=== PATIENT | male | born 1980 | race African-American/Black ===

== ENCOUNTER 2021-06-14 04:55 | Emergency (ER) | payer OTHER ==
[~2021-06-14] VITALS: Ht 172.7 cm; Wt 81.7 kg
--- NOTE | ~2021-06-14 | EMS ---
[address] [address] EMS Patient Care Report Name: FARHAN THOMPSON [id number] Admission: 06/14/21 Attend Phys: Discharge: 06/14/21 Date of : 76 Report #: [id number] THIS REPORT FOR: //name// Report Transmitted: 06/15/2021 10:40 EMS Care Summary [place], [place]/[facility] Incident [id number] @ 06/14/2021 04:12 Incident [address] [place] [address] Patient FARHAN THOMPSON Male, 41 Years 1980 Patient Address [address] [place] [address] Patient History None Reported, Patient Allergies No known allergies, Patient Medications None Reported, Chief Complaint METHADONE OVERDOSE Disposition Transported No Lights/[place] Dispatch Reason Convulsions/Seizure Transported To [facility] Narrative PT FOUND LYING ON L SIDE ON FLOOR IN [address] [address] OF HIS HOME. PT STATES THAT HE TOOK METHADONE AND THOUGHT HE WAS GOING TO OVERDOSE SO HE GAVE HIMSELF NARCAN IN. PT STATES THAT AFTER TAKING THE NARCAN HE HE GOT NAUSEOUS AND VOMITED MULTIPLE TIMES. PT STATES THAT HE BELIEVES HE IS ALLERGIC TO THE NARCAN. PT [address] [address] EMS Patient Care Report Name: FARHAN THOMPSON Room #: DEP [facility]#: [id number] Admission: 06/14/21 Attend Phys: Discharge: 06/14/21 Date of : 76 Report #: [id number] ABLE TO STAND AND AMBULATE TO STRETCHER W/ EMS ASSIST. PT STATES THAT HE DOES NOT WANT MORE NARCAN FROM EMS. PT HAS NO VISIBLE TRAUMA. PT HAS NO COMPLAINTS OF PAIN, SOB, CP OR TRAUMA. NO CHANGES NOTED ENROUTE. Initial Vitals @04:30P: 96,R: 16,BP: 113/70,Pain: 0/10,GCS: 15,Glucose: 201,CO: 14,SpO2: 100,Revised Trauma: 12, @04:31P: 89,R: 16,BP: 122/71,GCS: 15,SpO2: 98,Revised Trauma: 12, Assessments @04:25MENTAL:No Abnormalities,SKIN:No Abnormalities,HEENT:Eyes: Right: Constricted,Eyes: Left: Constricted,LUNG SOUNDS:General: Vomiting,ABDOMEN:General: Vomiting,PELVIS//GI:No Abnormalities,EXTREMITIES:PULSE:NEURO:No Abnormalities, Impression Overdose - Methadone Procedures @04:25 ALS Assessment Response: UnchangedSucceeded @04:27 Stretcher Response: Unchanged @04:37 IV Therapy - Saline Lock 0cc (20 ga) Site: Hand-Right Response: UnchangedFailed @04:31 3-Lead ECG Response: UnchangedSucceeded Timeline 04:12,Call Received 04:12,Dispatch Notified 04:12,Dispatched 04:14,En Route 04:23,On Scene 04:25,At Patient 04:25,ALS Assessment,Response: UnchangedSucceeded, 04:27,Stretcher,Response: Unchanged 04:30,BP: 113/70 M,PULSE: 96,RR: 16 R,SPO2: 100 Ox,ETCO2: ,B,PAIN: 0,GCS: 15, 04:31,BP: 122/71 M,PULSE: 89,RR: 16 R,SPO2: 98 Ox,ETCO2: ,BG: ,PAIN: ,GCS: 15, 04:31,3-Lead ECG,Response: UnchangedSucceeded, 04:37,IV Therapy - Saline Lock 0cc 20 ga Site: Hand-Right,Response: UnchangedFailed, 04:42,Depart Scene 04:54,At Destination 05:02,Call Closed Disclaimer [address] [address] EMS Patient Care Report Name: FARHAN THOMPSON [facility] [id number] Admission: 06/14/21 Attend Phys: Discharge: 06/14/21 Date of : 76 Report #: [id number] v1.1 Copyright 2021 [employer] This EMS Care Summary contains data elements from the applicable legal record (which may be displayed differently). It is designed to provide pertinent information for the following purposes: continuity of care, clinical quality, and state data reporting. The complete legal record is available to ED staff and administrators of the receiving hospital in [employer]'s Patient Tracker. All data is provided "as is."
[2021-06-14 05:24] LABS: ABSOLUTE NEUTROPHILS 3.7 thou/uL (1.4-8.2); BASOPHILS 0.6 % (0.0-2.0); EOSINOPHILS 0.2 % (0.0-3.0); HEMATOCRIT 22.4 % (42.0-52.0); HEMOGLOBIN 7.8 gm/dL (14.0-18.0); LYMPHOCYTES 33.8 % (24.0-44.0); MCH 47.4 pg (26.0-34.0); MCHC 34.6 g/dL (28.0-37.0); MCV 136.9 fL (80.0-100.0); MONOCYTES 3.1 % (1.0-8.0); PLATELET COUNT 285 thou/uL (150-400); POLYS 62.3 % (36.0-66.0); RBC 1.64 mil/uL (4.50-6.00); RDW 21.6 % (10.5-14.5); WBC 5.9 thou/uL (4.0-11.0)
[2021-06-14 05:54] LABS: CALCIUM 8.9 mg/dL (8.5-10.1); CREATININE 1.2 mg/dL (0.7-1.3); POTASSIUM 3.8 mmol/L (3.5-5.1)
[2021-06-14 06:11] LABS: ALBUMIN 3.5 g/dL (3.4-5.0); TOTAL BILIRUBIN 0.5 mg/dL (0.2-1.0); TOTAL PROTEIN 7.7 g/dL (6.4-8.2)
[2021-06-14] MEDS ORDERED: PHENERGAN 25 MG25 M1 PO (06:54)
--- NOTE | 2021-06-14 07:18 | EKG ---
[address] [employer] [place] [address] ELECTROCARDIOGRAM REPORT Name: FARHAN THOMPSON Room #: REG [facility]#: [id number] Admission: 06/14/21 Attend Phys: Discharge: Date of : 76 Report #: [id number] [facility] ED Test Date: 2021-06-14 Test Time: 05:15:17 Pat Name: FARHAN THOMPSON Department: Room: Gender: M Plant Protection Guard: renaldo malave : 1980 Requested By: Doug Red Order Number: [id number] MD: Ferdinand Amezcua Measurements Intervals Hawkins Rate: 88 P: 46 FL: 149 QRS: 44 QRSD: 86 T: 46 QT: 383 QTc: 464 Interpretive Statements Sinus rhythm Abnormal R-wave progression, early transition Nonspecific T abnrm, anterolateral leads No previous ECG available for comparison Electronically Signed On 06-14-2021 7:18:13 [employer] by Ferdinand Amezcua [email or web address] <ELECTRONICALLY SIGNED> By: Ferdinand Amezcua MD, [facility] 06/14/21 0718 0515 0515 Ferdinand Amezcua MD, FACC /EPI
[2021-06-14 08:00] VITALS: BP 150/76
== END 2021-06-14 08:02 | disposition home or self-care (01) ==
LOC: ER 04:55
PROVIDERS: Emergency Medicine
DX: F11.23 Opioid dependence with withdrawal (principal); Z79.899 Other long term (current) drug therapy